=== PATIENT | female | born 1940 | race Caucasian/White ===

== ENCOUNTER 2017-04-21 08:40 | Emergency (ER) | payer OTHER, BC ==
--- NOTE | 2017-04-21 08:56 | PDOC ---
History of Present Illness - General Chief Complaint: Nasal Bleeding Stated Complaint: NOSE BLEED Time Seen by Provider: 04/21/17 08:54 History Source: Patient Exam Limitations: No Limitations - History of Present Illness Initial Comments: 04/21/17 08:56 76y F hx of anxiety presents with nose bleed. The pt states that she was sleeping and felt like she touchd her nose while sleeping, then felt bleding and woke up. She noted it bled for a bit until she squeezed her nares together and stopped bleeding substantially but still trickled for up to an hour. The pt denies any lightheadedness, cp, sob. No current bleeding. Pt doesnt take any type of blood thinners but took 2 full dose aspriin last night due to a headache that had resolved. pt has hx of nose bleed that was cauterized by ENT last year, but since has not had anymajor nose bleeds. Past History - Past Medical History Allergies/Adverse Reactions: Allergies Allergy/AdvReac Type Severity Reaction Status Date / Time cortisone Allergy Severe Low Blood Verified 04/21/17 08:45 Pressure ampicillin Allergy Intermediate Rash Verified 04/21/17 08:43 Home Medications: Ambulatory Orders Advair 500Mcg/50Mcg - 1 puff NEB DAILY 04/21/17 Diazepam [Valium] 5 mg PO ONCE 04/21/17 Folic Acid 1 mg PO DAILY 04/21/17 Montelukast Na [Singulair -] 10 mg PO HS 04/21/17 Sertraline HCl 50 mg PO DAILY 04/21/17 Review of Systems - Review of Systems Able to Perform ROS?: Yes Comments:: 04/21/17 08:59 Constitutional - no reported Fever, Chills, HEENT: +nose bleed no reported vision changes, sore throat Respiratory: no reported cough, sob, hemoptysis Cardiac: no reported chest pain, palpitations, light headedness, leg swelling skin - no reported bruising, erythema, rash neurological: no reported headache, numbness, focal weakness, tingling, ataxia, hematologic: no reported anemia, easy bruising, easy bleeding *Physical Exam - Physical Exam Comments: 04/21/17 08:59 GENERAL: The patient is awake, alert, and fully oriented, Nontoxic - in no acute distress. HEAD: Normocephalic, atraumatic. EYES: extraocular movements intact, sclera anicteric, conjunctiva clear. ENT: Normal voice, Moist mucous membranes. patent nares, no active bleeding, + raw area at distal end of R nare without active bleeding, no bleeding / trickling in posterior pharynx NECK: Normal range of motion, supple SKIN: Warm, Dry, normal turgor, Medical Decision Making - Medical Decision Making 04/21/17 09:00 76y F presenting with epistaxis to R nare that stopped bleeding with supportive measures. no current bleeding +area of rawness to distal end of R septum 0 suspect she may have caused some trauma by scratching at it when she was sleeping. applied topical coating of bacitrcin will recommend supportive care at home if bleeding recurrs and cannot stop will have pt return to ED ENT fu if bleeding recurrent for evluation (her ENT is in [place]) I discussed the physical exam findings, ancillary test results and final diagnoses with the patient. I answered all of the patient's questions. The patient was satisfied with the care received and felt comfortable with the discharge plan and treatment plan. The patient will call their primary care physician within 24 hours to arrange follow-up and will return to the Emergency Department with any new, persistent or worsening symptoms. *DC/Admit/Observation/Transfer Diagnosis at time of Disposition: Epistaxis - Discharge Dispostion Disposition: HOME Condition at time of disposition: Improved Admit: No - Referrals Referrals: Hector De La Torre MD [Staff Physician] - - Patient Instructions Printed Discharge Instructions: DI for Nosebleed Additional Instructions: Return to the emergency department immediately with ANY new, persistent or worsening symptoms including chest pain, palpitations, dizziness, sob, or any further bleeding that does not stop. Do not scratch, pick or blow your nose. If you have further episodes of bleeding, place pressure on your nose and an ice pack over it. If bleeding persists beyond 15 minutes, come back to the emergency department. You MUST call and follow up with your ENT doctor if you have frequent bloody noses for further evaluation of your symptoms. Your emergency department visit is not complete without a followup with your doctor for reevaluation. Results were discussed with you. Please make sure your doctor reviews the results of your emergency evaluation. Print Language: LIBERIAN
[2017-04-21 09:17] VITALS: BP 139/82; PULSE 80; TEMP 98.3; BMI 24.0
== END 2017-04-21 09:23 | disposition home or self-care (01) ==
LOC: FER 08:40
DX: R04.0 Epistaxis (principal); F41.9 Anxiety disorder, unspecified
CPT/HCPCS: 99281-25

== ENCOUNTER 2018-08-26 13:18 | Emergency (ER) | payer OTHER, BC ==
--- NOTE | 2018-08-26 13:25 | PDOC ---
History of Present Illness - General Chief Complaint: Injury Stated Complaint: LEFT FOOT INJURY 2 DAYS AGO - History of Present Illness Initial Comments: 08/26/18 13:53 78yo female with a pmhx of COPD presents for eval of a mechanical fall that happened on Sunday. States she slipped down 4 stairs. Landed on her buttock, but twisted her L foot and ankle hit the lower step and wall. Pt states she was able to get up and has been walking on the foot/ankle. Pt states pain has improved and the swelling has decreased. Pt placed ice to the foot/ankle on sunday intermittently. States she took Tylenol on sunday for pain. Denies taking any other meds for pain. Pt denies strickland. No head injury or loc. No neck or back pain. No hip or buttock pain. No f/c. No cp/sob/palpitations. No abd pain. No hematuria. No dysuria. No other complaints. Pmhx: COPD PShx: lap akira All: cortisone, ampicillin Past History - Past Medical History Allergies/Adverse Reactions: Allergies Allergy/AdvReac Type Severity Reaction Status Date / Time cortisone Allergy Severe Low Blood Verified 08/26/18 13:20 Pressure ampicillin Allergy Intermediate Rash Verified 04/21/17 08:43 Home Medications: Ambulatory Orders Advair 500Mcg/50Mcg - 1 puff NEB DAILY 04/21/17 Diazepam [Valium] 2.5 mg PO PRN 04/21/17 Folic Acid 1 mg PO DAILY 04/21/17 Montelukast Na [Singulair -] 10 mg PO HS 04/21/17 Sertraline HCl [Zoloft] 150 mg PO DAILY 08/26/18 COPD: Yes Psychiatric Problems: Yes (ANXIETY DEPRESSION) - Surgical History Cholecystectomy: Yes - Suicide/Smoking/Psychosocial Hx Smoking History: Former smoker Have you smoked in the past 12 months: No If you are a former smoker, when did you quit?: 1999 Hx Alcohol Use: No Drug/Substance Use Hx: No Substance Use Type: None Review of Systems - Review of Systems Able to Perform ROS?: Yes Is the patient limited [place] proficient: No Constitutional: No: Chills, Fever HEENTM: No: Nose Pain, Throat Pain Respiratory: No: Cough, Shortness of Breath Cardiac (ROS): No: Chest Pain, Lightheadedness, Palpitations ABD/GI: No: Diarrhea, Nausea, Vomiting, Abdominal cramping : No: Burning, Hematuria Musculoskeletal: Yes: Other (L foot and ankle pain). No: Back Pain, Neck Pain Integumentary: Yes: Bruising (L lateral malleolus and across the foot) Neurological: No: Headache, Numbness, Paresthesia, Unsteady Gait, Ataxia, Dizziness All Other Systems: Reviewed and Negative *Physical Exam - Vital Signs 08/26/18 14:43 Selected Entries 08/26/18 13:20 Temperature 98.2 F Pulse Rate 67 Respiratory 18 Rate Blood Pressure 126/70 Blood Pressure 88 Mean O2 Sat by Pulse 98 Oximetry (%) Weight 55.338 kg - Physical Exam General Appearance: Yes: Nourished, Appropriately Dressed. No: Apparent Distress HEENT: positive: EOMI, Normal Voice Neck: positive: Supple, Other (no midline c spine ttp, no stepoffs or deformities). negative: Tender Respiratory/Chest: positive: Lungs Clear, Normal Breath Sounds, Other (no rib ttp). negative: Chest Tender, Respiratory Distress Cardiovascular: positive: Regular Rhythm, Regular Rate, S1, S2 Gastrointestinal/Abdominal: positive: Normal Bowel Sounds, Flat, Soft. negative : Guarding, Rebound, Tenderness Musculoskeletal: positive: Normal Inspection. negative: CVA Tenderness, Vertebral Tenderness Extremity: positive: Normal Capillary Refill, Normal Range of Motion, Swelling ( L lateral mallolus, anterior foot swelling, ecchymosis), Other (ttp over L lateral malleolus, no ttp along 5th metatarsal, ecchymosis to base of foot over base of 5th metatarsal, ankle stable, negative anterior drawer to L ankle) Integumentary: positive: Dry, Warm, Ecchymosis (L lateral malleolus, L anterior foot ecchymosis, small area of eccmyosis to base of foot, pedal pulses intact, sensation intact, FROM of foot/ankle/toes, brisk cap refill of toes) Neurologic: positive: sap pp consultant II-XII NML intact, Fully Oriented, Alert, Normal Mood/ Affect, Motor Strength 5/5 Medical Decision Making - Medical Decision Making 08/26/18 14:46 a/p: 78yo female with a mechanical fall down 4 stairs -ecchymosis to L lateral malleolus and across foot -concern for fx vs sprain - will obtain xrays -pt denies needing pain meds or tylenol -will monitor and reassess 08/26/18 14:47 pt with base 5th metatarsal fx on L - will place in a splint will need orthopedic follow up discussed xray results with her son and the patient -pt will continue to stay with her son for assistance with ambulation and getting to orthopedics 08/26/18 15:[address] splint 08/26/18 15:14 neurovasc intact after splinting brisk cap refill of toes 08/26/18 15:14 discussed follow up with ortho discussed keeping splint dry stable for dc to home and follow up with pmd and orthopedics *DC/Admit/Observation/Transfer Diagnosis at time of Disposition: Pappas fracture - Discharge Dispostion Disposition: HOME Condition at time of disposition: Stable Decision to Admit order: No - Referrals Referrals: David Campbell MD [Staff Physician] - Brandon Malcolm DO [Staff Physician] - Darin Vázquez MD [Staff Physician] - - Patient Instructions Printed Discharge Instructions: DI for Foot Fracture Additional Instructions: Please apply ice 20 min on and 20 min off. Please make an appointment to see the orthopedist-at the next available appointment. Please follow up with your PMD. Please return to the ED with any further concerns or complaints. - Post Discharge Activity - Attestations Physician Attestion: 08/26/18 15:16 I, Dr. Isabel Ramsay, DO, attest that this document has been prepared under my direction and personally reviewed by me in its entirety. I further attest, that it accurately reflects all work, treatment, procedures and medical decision -making performed by me.
[2018-08-26 13:30] VITALS: BP 126/70; PULSE 67; TEMP 98.2; BMI 24.6
== END 2018-08-26 15:36 | disposition home or self-care (01) ==
LOC: FER 13:18
PROC: 2W3RX1Z Immobilization of Left Lower Leg using Splint (ICD-10-PCS; principal; 2018-08-26)
DX: S92.355A Nondisplaced fracture of fifth metatarsal bone, left foot, initial encounter for closed fracture (principal); W18.39XA Other fall on same level, initial encounter; Y93.89 Activity, other specified; Y92.89 Other specified places as the place of occurrence of the external cause
CPT/HCPCS: 73610-TC-LT-FY; 73630-TC-LT; 99281-25